=== PATIENT | male | born 1985 | race Caucasian/White ===

== ENCOUNTER 2024-07-28 10:55 | Emergency (ER) | payer SELFPAY ==
[2024-07-28 10:56] VITALS: BP 129/96; PULSE 81; RESP 18; TEMP 36.7; O2SAT 94; BMI 21.9
--- NOTE | 2024-07-28 11:04 | CT_ITS ---
WS: [id number] CT HEAD TECHNIQUE: Noncontrast CT of the head obtained from the skullbase to the vertex. CLINICAL INFORMATION: seizure COMPARISON: 2016 DLP: 1127.[address] scans at [facility] use at least one of these dose optimization techniques: automated e xposure control; mA and/or kV adjustment per patient size (includes targeted exams where dose is matc hed to clinical indication); or iterative reconstruction. FINDINGS: Increased attenuation RIGHT caudate suspicious for small amount of acute hemorrhage is new since 2016 . Recommend short-term interval follow-up to assess for change. No other suspicious foci. No hydrocephalus. Normal loredo-white differentiation. No evidence of mass effect. No extra-axial fluid collections. Paranasal sinuses and mastoid air cells are well aerated. No other suspicious findings. CT/CT head wo con* [id number] IMPRESSION: 1. Increased attenuation in the RIGHT caudate is new from 2016 and suspicious for small amount of acute hemorrhage. Additional considerations would include u nderlying vascular lesion or vascular malformation. Recommend short-term CT fol low-up to assess for change 2. No other suspicious findings Notified Garrick Collins DO at 07/28/2024 11:56 AM.
--- NOTE | 2024-07-28 11:05 | XR_ITS ---
WS: [id number] Portable AP upright chest, 07/28/2024 Clinical Data: seizure Comparison: Portable chest, 06/19/2018. Findings: No nodules, masses or effusions are seen. The heart is normal. The pulmonary vascularity is not increased. No pneumonia or pneumothorax is seen. Monitor leads are on the chest wall. XR/XR chest 1V portable [id number] Impression: Negative chest.
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
--- NOTE | 2024-07-28 11:21 | ECG_ITS ---
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 Measurements Intervals [place] Rate: 77 P: 52 AK: 152 QRS: 29 QRSD: 96 T: 55 QT: 376 QTc: 426 Interpretive Statements SINUS RHYTHM Compared to ECG 06/19/2018 13:39:08 No significant changes Electronically Signed On 07-28-2024 20:19:03 CDT by Guy Caputo M.D. [id number]
[2024-07-28 11:31] LABS: Basophils # 0.1 10^3/uL (0.0-0.1); Basophils % 0.9 %; Eosinophils # 0.2 10^3/uL (0.0-0.8); Eosinophils % 2.2 %; Hematocrit 50.6 % (37-53); Lymphocytes % 43.3 %; Mean Corpuscular HGB Conc 32.6 g/dL (30-55); Mean Corpuscular Hemoglobin 27.4 pg (27-33); Mean Corpuscular Volume 83.9 fl (82-101); Mean Platelet Volume 8.7 fL (7.4-10.4); Monocytes # 0.7 10^3/uL (0.2-0.9); Monocytes % 10.4 %; Neutrophils # 2.97 10^3/uL (1.8-7.7); Neutrophils % 42.9 %; Nucleated Red Blood Cells % 0 %; Platelet Count 341 10^3/cmm (157-399); Red Blood Count 6.03 10^6/uL (3.85-5.65); Red Cell Distribution Width 12.4 % (12.1-15.1); White Blood Count 6.91 10^3/uL (3.29-11.43)
[2024-07-28 11:56] LABS: Alanine Aminotransferase 34 U/L (0-41); Albumin Level 4.5 g/dL (3.5-5.2); Alkaline Phosphatase 74 U/L (40-130); Anion Gap 17.3 (5-19); Aspartate Amino Transferase 22 U/L (0-40); Blood Urea Nitrogen 14 mg/dL (6-20); Calcium 8.9 mg/dL (8.5-10.5); Carbon Dioxide 25 mmol/L (22-29); Chloride 100 mmol/L (98-107); Creatine Phosphokinase 62 U/L (39-308); Creatinine Clr Calc Pharmacy 105.9235; Globulin 2.9 g/dL (1.3-4.6); Glomerular Filtration Rate 73.8 mL/min (90-130); Glucose 86 mg/dL (65-115); Magnesium 2.2 mg/dL (1.7-2.3); Osmolality Calculated 286 mOsm/kg (285-295); Potassium 4.3 mmol/L (3.5-5.1); Sodium 138 mmol/L (136-145); Thyroid Stimulating Hormone 1.29 uIU/mL (0.27-4.20); Total Bilirubin 0.5 mg/dL (0.15-1.2); Total Protein 7.4 g/dL (6.6-8.7)
--- NOTE | 2024-07-28 11:58 | PC.PHAR ---
Officer in room states pt takes no medications that he knows of.
[2024-07-28 12:19] LABS: Prolactin 11.37 ng/mL (4.0-15.2)
--- NOTE | 2024-07-28 13:29 | PC.NURSE ---
Patient has now been placed under a 96 hour hold. Patient was released from police custody on his own recognizance.
[2024-07-28 13:43] LABS: Acetaminophen < 5.0 ug/mL (10-30); Alcohol Level < 10 mg/dL (0-10); Salicylate < 0.3 mg/dL (3-10)
[2024-07-28 14:12] LABS: Bilirubin Urine Negative (Negative); Blood Urine Negative (Negative); Glucose Urine UA Negative (Normal); Ketones Urine Negative (Negative); Leukocyte Esterase Urine Negative (Negative); Nitrate Urine Negative (Negative); Protein Urine Negative (Negative); Specific Gravity, Urine 1.013 (1.005-1.030); Urine Appearance Clear (CLEAR); Urine Color Yellow (Yellow)
[2024-07-28 14:15] LABS: Add Urine Microscopic? YES; Bacteria Urine None Seen /hpf; RBC Urine 0-2 /hpf (0-2); Squamous Epithelial Cell Urine 0-5 /hpf (0-5); WBC Urine 0-5 /hpf (0-5)
[2024-07-28 14:19] LABS: Amphetamines Screen Urine Negative (Negative); Barbiturates Screen Urine Negative (Negative); Benzodiazepines Screen Urine Positive (Negative); Cocaine Screen Urine Negative (Negative); Opiate Screen Urine Negative (Negative); PCP Screen Urine Negative (Negative); THC Screen Urine Negative (Negative)
--- NOTE | 2024-07-28 16:49 | PC.NURSE ---
96 hour hold rights read to patient at bedside. Patient asked if he would be able to see his children during the 96 hour hold and was told he could have visitors, but none under the age of 18. Patient verbalized understanding.
--- NOTE | 2024-07-28 18:53 | PC.NURSE ---
Afshan NEVAREZ and this preceptor assumed care of patient from Deidra NEVAREZ at shift change.
[2024-07-28 19:15] VITALS: BP 121/77; PULSE 91; O2SAT 98
[2024-07-28 20:02] VITALS: BP 121/77; PULSE 91; O2SAT 98
== END 2024-07-28 20:05 | disposition short-term general hospital (02) ==
PROVIDERS: Emergency Provider Emergency Medicine
DX: G40.909 Epilepsy, unspecified, not intractable, without status epilepticus (principal); R45.851 Suicidal ideations; I61.9 Nontraumatic intracerebral hemorrhage, unspecified
CPT/HCPCS: 70450; 71045; 80053; 80306; 80307; 81001; 82550; 83735; 84146; 84443; 85025; 93005; 99285

== ENCOUNTER → 2024-11-13 14:37 | Outpatient (BNVA) | payer SELFPAY | PROVIDERS: Visit Provider Family Medicine | DX: H05.10 Unspecified chronic inflammatory disorders of orbit (principal) | CPT/HCPCS: 87070; 87075; 87205 ==